=== PATIENT | female | born 1985 | race Caucasian/White ===

== ENCOUNTER → 2023-05-18 08:35 | Outpatient (REF) | payer BC, SELFPAY | LOC: REG 08:35 | PROVIDERS: ATTENDING PHYSICIAN Obstetrics & Gynecology | DX: Z34.93 Encounter for supervision of normal pregnancy, unspecified, third trimester (principal) | CPT/HCPCS: 36415; 86850; 86900; 86901; J2790 ==

== ENCOUNTER 2023-08-04 22:04 | Inpatient (IN) | payer BC, SELFPAY ==
[2023-08-04 22:14] VITALS: BMI 29.4
[2023-08-04 22:35] VITALS: BP 130/87
[2023-08-04 23:52] LABS: % Basophils 0.4 % (0-2); % Immature Granulocytes 0.3 % (0-0.5); % Lymphocytes 29.5 % (20.5-51.1); % Monocytes 14.6 % (1.7-9.3); % Neutrophils 54.2 % (42.2-75.2); Absolute Eosinophils 0.1 10^3/uL (0-0.7); Absolute Lymphocytes 3.2 10^3/uL (1.2-3.4); Absolute Monocytes 1.6 10^3/uL (0.1-0.6); Absolute Neutrophils 5.9 10^3/uL (1.4-6.5); Hematocrit 34.6 % (37.0-47.0); Hemoglobin 12.5 g/dL (12.0-16.0); Mean Corp Hgb Conc. 36.1 g/dL (33.0-37.0); Mean Corpuscular Hgb 29.4 pg (27.0-31.0); Mean Corpuscular Volume 81.4 fL (81.0-99.0); Mean Platelet Volume 11.9 fL (7.4-10.4); Nucleated Red Blood Cells % 0 %; Platelet Count 398 10^3/uL (130-400); Red Blood Cell Count 4.25 10^6/uL (4.20-5.40); Red Cell Dist. Width 12.9 % (11.5-14.5); White Blood Cell Count 10.9 10^3/uL (4.8-10.8)
[2023-08-05] MEDS: PITOCIN 30 UNITS/NSS 500 ML IV ×2 (09:02→17:53)
[2023-08-05] MEDS: FENTANYL/BUPIVACAINE 100 EPIDURAL (15:45)
[2023-08-05] MEDS: SUBLIMAZE 100 MCG EPIDURAL (15:45)
[2023-08-05] MEDS: MOTRIN 600 MG PO (18:28)
[2023-08-05] MEDS: METHERGINE INJECTION 0.200000000000000011 MG IM (19:51)
[2023-08-05] MEDS: PERCOCET 5/325 1 TABLET PO (20:41)
[2023-08-05] MEDS: ZOLOFT 50 MG PO (20:43)
[2023-08-06] MEDS: MOTRIN 600 MG PO ×3 (00:55→15:11)
[2023-08-06] MEDS: TYLENOL 650 MG PO ×2 (00:55→05:08)
[2023-08-06 04:39] LABS: Hemoglobin 12.8 g/dL (12.0-16.0)
[2023-08-06] MEDS: PERCOCET 5/325 1 TABLET PO ×3 (07:35→23:56)
[2023-08-06] MEDS: SENOKOT-S 1 TABLET PO (07:36)
[2023-08-06] MEDS: ZOLOFT 50 MG PO (19:40)
[2023-08-07] MEDS: MOTRIN 600 MG PO (06:28)
[2023-08-07] MEDS: PERCOCET 5/325 1 TABLET PO (06:29)
[2023-08-07] MEDS: SENOKOT-S 1 TABLET PO (08:38)
[2023-08-07 15:43] LABS: Syphilis/T. pallidum Ab Reflex Negative (Negative)
== END 2023-08-07 11:45 | disposition home or self-care (01) | DRG 807 ==
LOC: LDRP 22:04
PROVIDERS: ADMITTING PHYSICIAN Obstetrics & Gynecology
PROC: 0HQ9XZZ Repair Perineum Skin, External Approach (ICD-10-PCS; 2023-08-05)
PROC: 10E0XZZ Delivery of Products of Conception, External Approach (ICD-10-PCS; 2023-08-05)
DX: O26.893 Other specified pregnancy related conditions, third trimester (principal); Z37.0 Single live birth; O70.0 First degree perineal laceration during delivery; Z3A.38 38 weeks gestation of pregnancy; Z67.11 Type A blood, Rh negative; O69.0XX0 Labor and delivery complicated by prolapse of cord, not applicable or unspecified
CPT/HCPCS: 36415; 85014; 85018; 85025; 86780; 86850; 86900; 86901

== ENCOUNTER 2023-08-08 14:15 | Emergency (ER) | payer BC, SELFPAY ==
[2023-08-08 14:19] VITALS: BP 134/87
[2023-08-08 14:43] LABS: % Basophils 0.6 % (0-2); % Immature Granulocytes 0.2 % (0-0.5); % Lymphocytes 26.5 % (20.5-51.1); % Neutrophils 60.7 % (42.2-75.2); Absolute Basophils 0.1 10^3/uL (0-0.2); Absolute Eosinophils 0.3 10^3/uL (0-0.7); Absolute Lymphocytes 3.5 10^3/uL (1.2-3.4); Absolute Monocytes 1.3 10^3/uL (0.1-0.6); Absolute Neutrophils 7.9 10^3/uL (1.4-6.5); Hematocrit 39.8 % (37.0-47.0); Hemoglobin 13.6 g/dL (12.0-16.0); Mean Corp Hgb Conc. 34.2 g/dL (33.0-37.0); Mean Corpuscular Hgb 29.1 pg (27.0-31.0); Mean Platelet Volume 10.7 fL (7.4-10.4); Nucleated Red Blood Cells % 0 %; Platelet Count 493 10^3/uL (130-400); Red Blood Cell Count 4.68 10^6/uL (4.20-5.40); Red Cell Dist. Width 13.2 % (11.5-14.5)
[2023-08-08 14:57] LABS: ALT (SGPT) 16 U/L (0-35); AST (SGOT) 28 U/L (14-36); Albumin 3.4 g/dl (3.5-5.0); Alkaline Phosphatase 146 U/L (38-126); Blood Urea Nitrogen 11 mg/dl (7-17); Calcium 9.3 mg/dl (8.4-10.2); Carbon Dioxide 23 mmol/L (22-30); Chloride 105 mmol/L (98-107); Glucose 93 mg/dl (70-99); Sodium 136 mmol/L (135-145); Total Bilirubin 0.4 mg/dl (0.2-1.3); Total Protein 6.4 g/dl (6.3-8.2); eGFR > 60.00
[2023-08-08 17:48] VITALS: BP 118/90
[2023-08-08 17:49] VITALS: BMI 28.6
[2023-08-08 17:57] LABS: Urine Albumin Trace (Neg - Trace); Urine Bilirubin Negative (Negative); Urine Character Slightly Cloudy (Clear); Urine Color Amber; Urine Glucose Negative (Negative); Urine Ketone Negative (Negative); Urine Leukocyte 2+ (Negative); Urine Nitrite Negative (Negative); Urine Occult Blood 4+ (Negative); Urine Urobilinogen Negative (Neg - 1+)
--- NOTE | 2023-08-08 17:59 | ED.GENMED ---
History of Present Illness
General
Chief Complaint: Chest Problem
Time Seen by Provider: 08/08/23 17:13
Travel History
Have you had any contact with someone who has COVID-19?: No
Do you have any symptoms of coronavirus? Fever > 100 degrees, chills, cough, shortness of breath, sore throat, loss of taste or smell, muscle aches, or headache?: No
History of Present Illness
History of Present Illness:
37-year-old female presents the emergency department for evaluation of bilateral flank pain that is worse with inspiration beginning over the past 2 days. She is 3 days from a routine vaginal , this was her fourth such and she
has not had any similar pain in the past. She is currently breast-feeding. Reports anticipated amount of vaginal bleeding. Denies any dysuria, nausea, vomiting, or fevers. No leg swelling or calf cramping
Past History
Past History
ED Past Medical History: Other (Hyperemesis/spherocytosis)
ED Past Surgical History: Appendectomy, Cholecystectomy and Other (Splenectomy. Bowel obstructions)
Social History
Tobacco: Non-smoker
Alcohol: None
Drug: None
Personal:
Living: with family
Review of Systems
Review of Systems
Allergies reviewed?: Yes
All Other Systems: ROS reviewed and negative except as documented in HPI and ROS
Phy Exam
Physical Exam
Physical Exam:
GEN: Well appearing, NAD, WDWN
Eyes: PERRLA, EOMs intact, no scleral icterus
HENT: NCAT, oral mucosa moist
Lungs: CTAB, no wheezes, rales, rhonchi, normal chest wall excursion
Cardiac: RRR, no M/R/G, no peripheral edema. Radial pulses 2+ bilat
Abdomen: S, NT, ND, NABS, no masses or hepatosplenomegaly
Neuro: AO x 3
MSK: No gross deformity or ecchymosis. No edema. No digital clubbing
Skin: No rashes, petechiae. Normal color, no pallor or jaundice.
Psych: Calm, cooperative, proper hygiene
Course
Orders/Labs/Results
Orders:
Orders
08/08/23 14:22
Electrocardiogram (*1) Urgent
Reason for Study: Chest Pain
08/08/23 14:23
EKG- Treatment ONCE
08/08/23 14:35
CMP [Comprehensive Metabolic Panel] Urgent
Complete Blood Count/With Diff Urgent
08/08/23 17:46
D-Dimer Urgent
Urinalysis Reflex To Culture Urgent
Date Specimen was Collected: 08/08/23
Time Specimen was Collected: 17:37
Urine Microscopic Reflex Cult Urgent
Urine Culture Urgent
ALAINA Source: U
Specimen Description:
Date Specimen was Collected: 08/08/23
Time Specimen was Collected: 17:37
08/08/23 18:45
CT Chest Pe Study Urgent
Comment:
Reason For Exam: chest pain/dyspnea, elevated d dimer
08/08/23 19:11
Ketorolac [Toradol] 15 mg IV NOW STA
08/08/23 20:05
Cephalexin Monohydrate [Keflex] 500 mg PO NOW STA
Abnormal Lab Results
08/08/23 08/08/23
14:35 17:46
WBC 13.0 H 10^3/uL
(4.8-10.8)
Plt Count 493 H D 10^3/uL
(130-400)
MPV 10.7 H fL
(7.4-10.4)
Absolute Neuts (auto) 7.9 H 10^3/uL
(1.4-6.5)
Absolute Lymphs (auto) 3.5 H 10^3/uL
(1.2-3.4)
Absolute Monos (auto) 1.3 H 10^3/uL
(0.1-0.6)
Monocytes % 10.0 H %
(1.7-9.3)
D-Dimer 1.76 H ug/mlFEU
(0.00-0.50)
Creatinine 0.5 L mg/dL
(0.6-1.0)
Alkaline Phosphatase 146 H U/L
(38-126)
Albumin 3.4 L g/dl
(3.5-5.0)
Ur Occult Blood Reflex 4+ A
(Negative)
Leukocyte Esterase Rfl 2+ A
(Negative)
Urine RBC 50-60 A /HPF
(0-2)
Urine WBC (Reflex) 21-25 A /HPF
(0-5)
Urine Bacteria (Reflex) Many A
(Negative)
08/08/23 14:35
08/08/23 14:35
Vital Signs
Initial and Last Documented VS:
Initial Vital Signs
Temp Pulse Resp BP Pulse Ox
98.2 F 106 20 134/87 97
08/08/23 14:19 08/08/23 14:19 08/08/23 14:19 08/08/23 14:19 08/08/23 14:19
Last Documented Vital Signs
Temp Pulse Resp BP Pulse Ox
98.2 F 69 16 118/90 96
08/08/23 17:48 08/08/23 17:48 08/08/23 17:48 08/08/23 17:48 08/08/23 17:48
MDM/Problems Addressed
MDM/Problems Addressed:
D-dimer elevation is likely artifactual on the basis of recent vaginal , nevertheless CT pulmonary angiogram was obtained showing no evidence for pulmonary embolism. Of note the patient does have mild tachycardia, leukocytosis, and urinalysis
findings that are compatible with UTI. UA may be contaminated by vaginal bleeding however given the bilateral flank pain will treat empirically for mild pyelonephritis pending urine culture. Will recommend antibiotic discontinuation if urine
culture is negative
*Critical Care Note
Total Time (30-74mins, 75-104mins- exclusive of procedures): Not Applicable
ED Attending Note
-
Portions of this chart may have been created with voice recognition software.� Occasional wrong word or��sound alike� substitutions may have occurred due to the inherent limitations of voice recognition software.
Discharge Plan
Departure
Patient Disposition: Home (Routine Discharge)
Date of Disposition: 08/08/23
Time of Disposition: 20:06
Patient with high blood pressure during this ER visit?: No
Discharge Problem:
Bilateral flank pain
Instructions: Flank Pain (DC)
Prescriptions:
New
cephalexin 500 mg capsule
500 mg PO Q8H 7 Days Qty: 21 0RF
No Action
sertraline [Zoloft] 50 mg Tablet
50 mg PO DAILY
ibuprofen 200 mg tablet
600 mg PO Q6HPRN PRN (Reason: moderate pain/cramps) Qty: 0 0RF
acetaminophen 325 mg Tablet
650 mg PO Q4HPRN PRN (Reason: mild pain) Qty: 0 0RF
Referrals:
Ti Woods MD [Family Provider] -
Activity Restrictions/Additional Instructions:
Your urinalysis is suggestive of UTI, thus we will treat this as a kidney infection. If your urine culture returns negative we will stop the antibiotics
Interventions
Interventions:
*Risk Screen - Suicide Last Done: 08/08/23 18:06
*General Assessment Last Done: 08/08/23 18:06
*Neglect/Abuse Screening Last Done: 08/08/23 18:06
ED- Fall Risk Assessment Last Done: 08/08/23 20:27
*ED COVID-19 Vaccine History Last Done: 08/08/23 14:19
*Nursing Disposition Last Done: 08/08/23 20:27
ED- Cardiac Assessment Last Done: 08/08/23 18:05
ED- Pulmonary Assessment Last Done: 08/08/23 18:05
Discharge Date and Time
Discharge Date/Time: 08/08/23 20:27
Print Language: ANDORRAN
[2023-08-08 18:06] LABS: Urine Bacteria Many (Negative); Urine Red Blood Cell 50-60 /HPF (0-2); Urine White Cell 21-25 /HPF (0-5)
[2023-08-08 18:14] LABS: D-Dimer 1.76 ug/mlFEU (0.00-0.50)
[2023-08-08] MEDS: TORADOL 15 MG IV (19:23)
[2023-08-08] MEDS: KEFLEX 500 MG PO (20:12)
== END 2023-08-08 20:27 | disposition home or self-care (01) ==
LOC: EMR 14:15
PROVIDERS: Emergency Medicine; Physician Assistant; EMERGENCY PHYSICIAN Student in an Organized Health Care Education/Training Program; FAMILY PHYSICIAN Obstetrics & Gynecology
DX: R10.9 Unspecified abdominal pain (principal)
CPT/HCPCS: 99285; 96374; 71275; 80053; 81003; 81015; 85025; 85379; 87086; 93005; Q9967

== ENCOUNTER → 2023-08-10 10:29 | Outpatient (REF) | payer BC, SELFPAY ==
[2023-08-10 11:13] LABS: % Basophils 0.5 % (0-2); % Eosinophils 3.4 % (0-6); % Immature Granulocytes 0.3 % (0-0.5); % Monocytes 10.7 % (1.7-9.3); % Neutrophils 55.1 % (42.2-75.2); Absolute Basophils 0.1 10^3/uL (0-0.2); Absolute Eosinophils 0.4 10^3/uL (0-0.7); Absolute Lymphocytes 3.3 10^3/uL (1.2-3.4); Absolute Monocytes 1.2 10^3/uL (0.1-0.6); Absolute Neutrophils 6.1 10^3/uL (1.4-6.5); Hematocrit 41.7 % (37.0-47.0); Hemoglobin 14.1 g/dL (12.0-16.0); Mean Corp Hgb Conc. 33.8 g/dL (33.0-37.0); Mean Corpuscular Hgb 29.1 pg (27.0-31.0); Nucleated Red Blood Cells % 0 %; Platelet Count 518 10^3/uL (130-400); Red Blood Cell Count 4.85 10^6/uL (4.20-5.40); Red Cell Dist. Width 13.1 % (11.5-14.5)
[2023-08-10 11:26] LABS: ALT (SGPT) 26 U/L (0-35); AST (SGOT) 33 U/L (14-36); Albumin 3.6 g/dl (3.5-5.0); Alkaline Phosphatase 146 U/L (38-126); Blood Urea Nitrogen 15 mg/dl (7-17); Calcium 9.4 mg/dl (8.4-10.2); Carbon Dioxide 26 mmol/L (22-30); Chloride 104 mmol/L (98-107); Glucose 90 mg/dl (70-99); Potassium 4.1 mmol/L (3.5-5.1); Sodium 138 mmol/L (135-145); Total Bilirubin 0.5 mg/dl (0.2-1.3); Total Protein 6.6 g/dl (6.3-8.2); eGFR > 60.00
== END ==
LOC: REG 10:29
PROVIDERS: ATTENDING PHYSICIAN Obstetrics & Gynecology
DX: Z00.01 Encounter for general adult medical examination with abnormal findings (principal); M79.10 Myalgia, unspecified site
CPT/HCPCS: 36415; 80053; 85025